=== PATIENT | male | born 1960 | race Hispanic/Latino ===

== ENCOUNTER → 2022-12-31 | Day surgery (SDC) | payer BC ==
[~2022-12-31] MED LIST: CRESTOR10 MG PO; FENTANYL CITRATE/PF 100MCG/2 ML INJ ONE; LACTATED RINGER'S 1,000 ML ONE; LOSARTAN POTASS25 MG PO; METFORMIN HCL500 MG PO; MIDAZOLAM HCL 2 MG/2 ML VIAL ONE; OR PHACO EYE KIT ONE; PREOP PHACO EYE KIT ONE; VITAMIN D PO
[2022-12-31 10:40] VITALS: BP 119/56; PULSE 53; RESP 18; O2SAT 98
== END | disposition home or self-care (01) ==
LOC: OR 06:42
PROVIDERS: ATTEND Ophthalmology
DX: H25.11 Age-related nuclear cataract, right eye (principal); E11.65 Type 2 diabetes mellitus with hyperglycemia; E78.5 Hyperlipidemia, unspecified; I10 Essential (primary) hypertension; Z79.84 Long term (current) use of oral hypoglycemic drugs; Z79.899 Other long term (current) drug therapy; Z68.33 Body mass index [BMI] 33.0-33.9, adult; Z87.891 Personal history of nicotine dependence
CPT/HCPCS: 36415; 66984; 82948; J2250; J3010; J7121; V2632